=== PATIENT | female | born 1980 | race African-American/Black ===

== ENCOUNTER → 2016-07-27 | Outpatient (CLI) | payer OTHER ==
[2016-07-27 17:22] LABS: BLOOD UREA NITROGEN 15 mg/dl (7-18); BUN/CREATININE RATIO 46.2 (10-20); CARBON DIOXIDE 27 mmol/L (21-32); CHLORIDE 110 mmol/L (98-107); CREATININE 0.33 mg/dl (0.60-1.20); GLUCOSE 119 mg/dl (70-99); POTASSIUM 3.5 mmol/L (3.5-5.1); SODIUM 142 mmol/L (136-145)
[2016-07-27 17:33] LABS: THYROID STIMULATING HORMONE < 0.005 uIu/ml (0.300-4.500)
[2016-07-29 07:50] LABS: MICROSOMAL AB >900 IU/ML (<9); THYROGLOBULIN 433.9 NG/ML (2.8-40.9)
== END | disposition home or self-care (01) ==
LOC: C.LABBC 15:22
PROVIDERS: ATTEND Physician Assistant
DX: E04.9 Nontoxic goiter, unspecified (principal); Z01.419 Encounter for gynecological examination (general) (routine) without abnormal findings

== ENCOUNTER → 2016-08-01 | Outpatient (CLI) | payer OTHER ==
[~2016-08-01] MED LIST: OPTIRAY 320 IV PRN
--- NOTE | 2016-08-01 07:40 | DIAGNOSTIC IMAGING REPORT ---
THYROID ULTRASONOGRAPHY CLINICAL HISTORY: Thyroid goiter COMPARISON STUDY: No previous studies for comparison. FINDINGS: The right lobe of thyroid measures 7.5 x 2.8 x 3.2 cm. The left lobe measures 7.3 x 3.1 x 3.4 cm. Both lobes are heterogeneous in echotexture and hypervascular. No focal nodules are visualized. IMPRESSION: Diffusely enlarged hypervascular thyroid gland. No focal masses identified. Electronically signed by: Chidi Heath M.D. 08/01/2016 7:38 AM Dictated Date/Time: 08/01/2016 7:37 AM
--- NOTE | 2016-08-01 08:06 | DIAGNOSTIC IMAGING REPORT ---
CT OF THE CHEST WITH IV CONTRAST CLINICAL HISTORY: Pulmonary nodule. Follow-up study. COMPARISON STUDY: 07/23/2015 TECHNIQUE: Following the IV administration of 76 mL of Optiray-320, CT of the thorax was performed from the thoracic inlet to the lung bases. Images are reviewed in the axial, sagittal, and coronal planes. IV contrast was administered without complication. CT DOSE: 184.79 mGy.cm FINDINGS: Thyroid: The thyroid is diffusely enlarged, and increased in size when compared the preceding study. Thoracic aorta: The thoracic aorta is normal in course and caliber, noting standard 3-vessel arch anatomy. No aneurysm or dissection is seen. Pulmonary vasculature: The pulmonary trunk is normal in caliber. There are no central filling defects identified to suggest pulmonary embolus. Note that this examination was not protocoled for the evaluation of pulmonary emboli. HEART: The heart is normal in size and configuration, without pericardial effusion. Lungs and pleural spaces: No pleural effusions are visualized. There is a 4 mm left lower lobe pulmonary nodule unchanged from the preceding study. Also evident is a stable 2 mm left lower lobe pulmonary nodule. No new or enlarging nodules are visualized. Mediastinum: There is no mediastinal lymphadenopathy. Natali: Clear. Axilla: Clear. Upper abdomen: Partially visualized upper abdominal viscera is within normal limits. Skeletal structures: There are no lytic or blastic osseous lesions. IMPRESSION: 1. Enlarging diffuse thyroid goiter 2. Stable 4 mm right lower lobe pulmonary nodule and stable 2 mm left lower lobe pulmonary nodule. 3. Unless this patient is a high risk individual, no further follow-up is indicated. Electronically signed by: Chidi Heath M.D. 08/01/2016 8:05 AM Dictated Date/Time: 08/01/2016 7:59 AM
== END | disposition home or self-care (01) ==
LOC: C.ULTR 07:16
PROVIDERS: ATTEND Physician Assistant
DX: R91.1 Solitary pulmonary nodule (principal); E04.9 Nontoxic goiter, unspecified

== ENCOUNTER → 2016-09-30 | Outpatient (CLI) | payer OTHER ==
[2016-09-30 14:10] LABS: THYROID STIMULATING HORMONE 0.051 uIu/ml (0.300-4.500)
== END | disposition home or self-care (01) ==
LOC: C.LABBC 10:02
PROVIDERS: ATTEND Internal Medicine Endocrinology, Diabetes & Metabolism
DX: E05.90 Thyrotoxicosis, unspecified without thyrotoxic crisis or storm (principal)

== ENCOUNTER → 2016-10-12 | Outpatient (CLI) | payer OTHER ==
[2016-10-12 12:21] LABS: PREG INTERNAL NEGATIVE QC NEG CLEAR BACKGROUND; PREG INTERNAL POSITIVE QC POS CONTROL LINE
== END | disposition home or self-care (01) ==
LOC: C.LAB 10:37
PROVIDERS: ATTEND Internal Medicine Endocrinology, Diabetes & Metabolism
DX: E05.90 Thyrotoxicosis, unspecified without thyrotoxic crisis or storm (principal)

== ENCOUNTER → 2016-10-20 | Outpatient (CLI) | payer OTHER ==
--- NOTE | 2016-10-20 11:46 | DIAGNOSTIC IMAGING REPORT ---
I-131 THYROID THERAPY FOR GRAVES' DISEASE CLINICAL HISTORY: E05.90 Hyperthyroidism COMPARISON STUDY: Thyroid uptake and scan dated 10/13/2016 FINDINGS: The risks the procedure were explained to the patient and informed consent was obtained. Appropriate post treatment precautions were explained to the patient. The patient was administered oral capsule containing 15.04 mCi of I-131. The patient will be followed up by Dr. Conn. IMPRESSION: Initial I-131 therapy for Graves' disease. The patient was administered oral capsule containing 15.04 mCi of I-131. Electronically signed by: Chidi Heath M.D. 10/20/2016 11:45 AM Dictated Date/Time: 10/20/2016 11:43 AM
== END | disposition home or self-care (01) ==
LOC: C.NUCL 10:18
PROVIDERS: ATTEND Internal Medicine Endocrinology, Diabetes & Metabolism
DX: E05.90 Thyrotoxicosis, unspecified without thyrotoxic crisis or storm (principal)

== ENCOUNTER → 2017-11-18 | Outpatient (CLI) | payer OTHER | END | disposition home or self-care (01) | LOC: C.LAB 14:47 | PROVIDERS: ATTEND Nurse Practitioner | DX: Z00.00 Encounter for general adult medical examination without abnormal findings (principal); E05.00 Thyrotoxicosis with diffuse goiter without thyrotoxic crisis or storm ==

== ENCOUNTER → 2017-11-20 | Outpatient (CLI) | payer OTHER | END | disposition home or self-care (01) | LOC: C.LAB 17:35 | PROVIDERS: ATTEND Nurse Practitioner | DX: Z00.00 Encounter for general adult medical examination without abnormal findings (principal) ==